=== PATIENT | male | born 1950 | race Caucasian/White ===

== ENCOUNTER → 2021-03-08 08:49 | Outpatient (CLI) | payer MEDICARE, OTHER, SELFPAY ==
--- NOTE | 2021-03-08 08:57 | VDUE_ITS ---
Reason For Study: Renal Failure Right Arm Left Arm Rt Brachial A: 0.49cm x 0.43cm, 111 cm/s Lt Brachial A: 0.51cm x 0.48cm, 95 cm/s Rt Radial A: 0.22cm x 0.21cm, 120 cm/s. Lt Radial A: 0.24cm x 0.26cm, 118 cm/s. Right Cephalic Vein at the wrist measures Left Cephalic Vein at the wrist measures 0.19cm x 0.19 cm. 0.26cm x 0.29 cm. Right Cephalic Vein in the forearm measures Left Cephalic Vein in the forearm measures 0.20cm x 0.20 cm. 0.20cm x 0.22 cm. Right Cephalic Vein below antecub measures Left Cephalic Vein below antecub measures 0.25cm x 0.28 cm. 0.33cm x 0.39 cm. Right Cephalic Vein above antecub measures Left Cephalic Vein above antecub measures 0.43cm x 0.46 cm. 0.24cm x 0.23 cm. Right Cephalic Vein mid bicep measures Left Cephalic Vein at mid bicep measures 0.28cm x 0.31 cm. 0.19cm x 0.18 cm. Right Cephalic Vein at the shoulder measures Left Cephalic Vein at the shoulder measures 0.24cm x 0.30 cm. 0.20cm x 0.18 cm. Right Basilic Vein at the origin measures Basilic vein at origin measures 0.15cm x 0.38cm x 0.41 cm. 0.15 cm. Right Basilic Vein mid bicep measures 0.38cm Basilic vein at bicep measures 0.14cm x 0.11 x 0.41 cm. cm. Right Basilic Vein above antecub measures Basilic vein above antecub measures 0.15cm x 0.37cm x 0.37 cm. 0.14 cm. VL/Saphenous Vein Mapping, Bilat Interpretation Summary Patent and compressible bilateral upper extremity cephalic and basilic veins wi th dimensions as noted Normal bilateral radial and brachial diameter and flow Ordering Physician: Vargas Ann Referring Physician: [facility] Performed By: Kori Bennett RDCS, RVT ?
== END ==
PROVIDERS: Referring Provider Surgery; Visit Provider Surgery
DX: Z01.818 Encounter for other preprocedural examination (principal); N18.5 Chronic kidney disease, stage 5; N17.9 Acute kidney failure, unspecified
CPT/HCPCS: 93970; 93985

== ENCOUNTER 2021-04-27 08:41 | Day surgery (SDC) | payer MEDICARE, OTHER, SELFPAY ==
--- NOTE | 2021-04-21 15:14 | NURSING ---
for PAT phone interview, pt was not available as he was at dialysis; pt's [id number],Carmen, answered the phone. She did not know pt's health history or medications. Carmen agreeable to another phone call next week on Saturday04/24/21 when she will have the med list and health history. EKG appointment made according to Carmen's availability to transport pt.
--- NOTE | 2021-04-25 09:42 | EKG12_ITS ---
Test Reason : PREOP Blood Pressure : / mmHG Vent. Rate : 058 BPM Atrial Rate : 058 BPM P-R Int : 154 ms QRS Dur : 078 ms QT Int : 456 ms P-R-T Axes : 046 -07 -04 degrees QTc Int : 447 ms Sinus bradycardia Inferior infarct , age undetermined Abnormal ECG Confirmed by TU SANTANA, JAMIE ([id number]), commercial production editor BRICE SIDDIQUI ([id number]) on 04/25/2021 1:49:06 PM Referred By: Vargas Ann Confirmed By:JAMIE MAE MD
[2021-04-25 10:37] LABS: Hematocrit 35.6 % (40-54); Hemoglobin 11.6 g/dL (13.0-16.5); Mean Corp Hgb Conc 32.6 g/dL (32-36); Mean Corpuscular Hgb 32.1 pg (27.0-32.0); Mean Corpuscular Volume 98.6 fL (80-94); Platelet Count 143 K/mm3 (150-450); RBC Distribution Width CV 12.8 % (11.6-14.6); RBC Distribution Width SD 46.5 fl (35.1-43.9); Red Blood Count 3.61 M/mm3 (4.6-6.2)
[2021-04-25 11:02] LABS: Anion Gap 7 (5-15); BUN 29 mg/dL (7-18); BUN/Creat Ratio 7.5 RATIO (10-20); Calcium,Total 8.8 mg/dL (8.5-10.1); Chloride 101 mmol/L (98-107); Creatinine, Serum 3.88 mg/dL (0.70-1.30); EST Glomerular Filtration Rate 16 mL/min (>60); Est Glom Filt Rate - Afr Amer 20 mL/min (>60); Glucose 140 mg/dL (74-106); Sodium Level 141 mmol/L (136-145)
[2021-04-27] VITALS (9 sets, daily range): BP systolic 79–166; BP diastolic 40–80; PULSE 55–68; RESP 14–18; TEMP 35.9–37; O2SAT 96–100; BMI 29.1
[2021-04-27 09:26] LABS: Bedside Glucose 90 mg/dL (70-110)
--- NOTE | 2021-04-27 09:35 | PCM.HP.BLA ---
History and Physical Date of Admission: 04/27/21 Intake Visit Reasons: VM 03/08, FISTULA PLACEMENT Chief Complaint: fistula placement Manager Reliability Required: No Is patient in pain?: No Allergies No Known Allergies Allergy (Verified 04/12/21 15:03) Medications Unobtainable 04/12/21 [History Confirmed 04/12/21] [facility] Medical History (Updated 04/12/21 @ 14:57 by Brittney Saturday) Acute renal failure Diabetes Surgical History (Updated 04/12/21 @ 14:57 by Brittney Saturday) H/O carotid endarterectomy Family History (Updated 04/12/21 @ 14:58 by Brittney Saturday) Father Diabetes Hypertension Social History (Updated 04/12/21 @ 14:58 by Brittney Saturday) Smoking Status: Former smoker alcohol intake: never substance use type: does not use HPI HPI HPI: PAIGE MCWILLIAMS, is a 70 M who presents to the office today for surgical consultation regarding a fistula creation. The patient is referred by the [place], [place] dialysis [facility] sa[facility], Juliet Seth RN and Dr.Ravindra Kwong and a written copy of my surgical consult and recommendations will return to them. As of 01/25/2021 the patient's BUN was 57 and creatinine 5.21. The patient is on hemodialysis via right internal jugular tunneled dialysis catheter for at least a year and a half. Although previously recommended for referral the patient has declined for the past year and a half and having a fistula created. He is right arm dominant. He has had 2 Covid vaccinations but has not been booster. He presents with his daughter today. There is evidence of bilateral carotid endarterectomies. By the report of the daughter there apparently is recurrent stenosis of 1 carotid but the patient again is refusing intervention. 03/08/2021 Reason For Study: Renal Failure Right Arm Left Arm Rt Brachial A: 0.49cm x 0.43cm, 111 cm/s Lt Brachial A: 0.51cm x 0.48cm, 95 cm/s Rt Radial A: 0.22cm x 0.21cm, 120 cm/s. Lt Radial A: 0.24cm x 0.26cm, 118 cm/s. Right Cephalic Vein at the wrist measures Left Cephalic Vein at the wrist measures 0.19cm x 0.19 cm. 0.26cm x 0.29 cm. Right Cephalic Vein in the forearm measures Left Cephalic Vein in the forearm measures 0.20cm x 0.20 cm. 0.20cm x 0.22 cm. Right Cephalic Vein below antecub measures Left Cephalic Vein below antecub measures 0.25cm x 0.28 cm. 0.33cm x 0.39 cm. Right Cephalic Vein above antecub measures Left Cephalic Vein above antecub measures 0.43cm x 0.46 cm. 0.24cm x 0.23 cm. Right Cephalic Vein mid bicep measures Left Cephalic Vein at mid bicep measures 0.28cm x 0.31 cm. 0.19cm x 0.18 cm. Right Cephalic Vein at the shoulder measures Left Cephalic Vein at the shoulder measures 0.24cm x 0.30 cm. 0.20cm x 0.18 cm. Right Basilic Vein at the origin measures Basilic vein at origin measures 0.15cm x 0.38cm x 0.41 cm. 0.15 cm. Right Basilic Vein mid bicep measures 0.38cm Basilic vein at bicep measures 0.14cm x 0.11 x 0.41 cm. cm. Right Basilic Vein above antecub measures Basilic vein above antecub measures 0.15cm x 0.37cm x 0.37 cm. 0.14 cm. VL/Saphenous Vein Mapping, Bilat Interpretation Summary Patent and compressible bilateral upper extremity cephalic and basilic veins with dimensions as noted Normal bilateral radial and brachial diameter and flow Ordering Physician: Vargas Ann Referring Physician: [facility] Performed By: Kori Bennett, MALICK, RVT ? 03/08/21 1145Date Vargas Ann MD ROS General General: No weight change, appetite, fatigue, colon cancer, breast cancer or weakness HEENT HEENT: No difficulty swallowing, eye injury, eye surgery, swollen glands or hoarseness Endo Endocrine: Yes diabetes mellitus; No thyroid disease, thyroid cancer, Hair loss, heat intolerance or cold intolerance Skin Skin: No rash or changing moles Musc Musculoskeletal: No back problems, arthritis, rheumatoid arthritis, gout or joint pain Cardio Cardiovascular: Yes high blood pressure and heart attack; No murmur, pacemaker, heart disease, atrial fibrillation, heart stent, palpitations, shortness of breat with exertion or chest pain Psych Psychiatric: No depression, anxiety or hearing voices Resp Respiratory: Yes shortness of breath, No sleep apnea, No cough, Yes COPD, No asthma, No emphysema and No wheezing Gastro Gastrointestinal: No abdominal pain, No nausea or vomiting, No diarrhea, No constipation, No blood in stool, No acid reflux, No hemorrhoids, No ulcers, No gallbladder problem and No black,tarry stools Aly Hematologic: Yes blood thinners, No blood disorders, No bleeding, No anemia and No blood clots Neuro Neurologic: No system reviewed and no additional complaints, except as documented, No as per HPI, No abnormal gait, No abnormal hearing, No abnormal movements, No abnormal speech, No behavioral changes, No burning sensations, No confusion, No convulsions, No disequilibrium, No dizziness, No localized weakness, No frequent falls, No headache(s), No lack of coordination, No loss of vision, No memory loss, No numbness, No other visual disturbances, No radicular pain, No restless legs, No sensory deficit, No syncope, No tingling, No tremor(s), No weakness and No other Exam Const General: cooperative, comfortable and no acute distress Nutritional Appearance: average body habitus Orientation: alert and awake [facility] Head: normal to inspection Eyes General: appearance normal, both eyes and all related structures Neck Other: Well-healed bilateral carotid incisions, 2+ bilateral carotid pulses, 2/6 bruit on the left, high-pitched staccato 2/6 bruit on the right Chest Chest palpation & inspection: normal inspection of the chest Resp Effort & Inspection: normal respiratory effort Auscultation: clear to auscultation bilaterally Cardio Rate: regular rate Rhythm: regular rhythm GI Palpation: soft and no hepatosplenomegaly Auscultation: normal bowel sounds Musc Cervical Spine: normal cervical lordosis Skin General: no rashes or lesions noted Neuro General: patient alert and patient awake Extrem Other: 3+ left radial pulse. 3+ left brachial pulse. Ultrasound inspection reveals a borderline cephalic vein of the wrist and forearm and of adequate depth. It is patent and compressible. Psych Appearance: grossly normal Assessment and Plan Assessment and Plan (1) Chronic renal insufficiency, stage V: Status: Chronic Plan - Dr. Vargas Ann MD: 70-year-old gentleman with stage V chronic renal failure. I recommend to him a left forearm radiocephalic arteriovenous hemodialysis fistula. With the daughter present I described the technique, benefit, risk of alternatives. No guarantees of success have been offered. The patient has had a very long-term right IJ tunneled dialysis catheter in place. By daughter report the patient does not do well with anesthesia apparently is very confused and combative for multiple days postoperatively. He will be referred for preadmission testing analysis per anesthesia. He has had an opportunity to ask and have questions answered. We will schedule procedure at his discretion. I appreciate the opportunity of assisting with the surgical care Copy: and the [facility] system Vargas Ann M.D., F.A.C.S. I have re-examined the patient. There are no clinical changes since date of exam.
--- NOTE | 2021-04-27 09:35 | EX.PCM.DISCH ---
Discharge Instructions Procedure Fistula Diet Discharge Diet: Renal Diet Activity Discharge Activity: May Not Drive (for 2-3 days or while taking narcotic pain medications.), May Shower and May Take a Tub Bath (in 5 days.) Lifting Restrictions: 5 pounds Keep extremity elevated above heart level: - (Keep arm elevated above the heart level for 3 days.) Dressing / Incision Call your doctor if your incision/area has: Continuous Slow Oozing, Sudden Increased Bleeding (apply pressure and call your doctor.), Increased Pain/ Swelling, Increased Redness and Foul Smelling Discharge Call your doctor if you observe: Fever of 101 or Higher Suture Line Care: Avoid Pulling/Pushing and Avoid Pinching/Bending Cleanse incision/area with: Keep Dressing Clean & Dry Additional Dressing/Incision Instructions:: Change or remove dressing in one day. May protect with a gauze bandaid. Follow Up Care Please Follow Up With: Vargas Ann MD When: Call [phone] to make an appointment for suture removal and follow up in 1 week. Test Results: Test results from this visit will be discussed in further detail at your follow-up appointment, if applicable. Discharge Plan Admission Attending Provider: Vargas Ann Primary Care Provider: Hospital,ID Discharge Orders/Prescriptions Prescriptions: No Action atorvastatin 40 mg Tablet 40 mg PO DAILY RF: 0 carvedilol 12.5 mg Tablet 12.5 mg PO BID RF: 0 magnesium oxide 420 mg Tablet 420 mg PO DAILY RF: 0 amlodipine 5 mg Tablet 5 mg PO QHS RF: 0 levothyroxine 100 mcg Tablet 100 mcg PO DAILY RF: 0 isosorbide mononitrate 60 mg Tablet Extended Release 24 Hr 90 mg PO DAILY RF: 0 warfarin 6 mg Tablet 6 mg PO DAILY RF: 0 tamsulosin 0.4 mg Capsule 0.4 mg PO DAILY RF: 0 furosemide 80 mg Tablet 40 mg PO TUTHSA RF: 0 hydralazine 50 mg Tablet 50 mg PO TID RF: 0 cholecalciferol (vitamin D3) 25 mcg (1,000 unit) Tablet 75 mcg PO DAILY RF: 0 aspirin 81 mg Capsule 81 mg PO DAILY RF: 0
[2021-04-27 10:11] LABS: INR Fingerstick 1.7; Prothrombin Time Fingerstick 20.4 SEC (11.9-14.4)
[2021-04-27] MEDS: Bupivacaine Mpf 0.5% 30 ML VIAL (11:00)
[2021-04-27] MEDS: Lidocaine 1% (30 ml sdv) 30 ML Vial (11:00)
--- NOTE | 2021-04-27 11:47 | SUR.PREOP ---
on 04/24/21 in PAT interview with pt's dgtr-in-law Carmen, Carmen was instructed to clarify with Dr Ann's office if/when to stop Coumadin.
[2021-04-27] MEDS: Heparin Injection (Vial) 5,000 UNIT/ML VIAL 5000 UNIT (12:00)
--- NOTE | 2021-04-27 12:09 | OP.PCM_ITS ---
Problems Associated Problem List Diagnoses (1) Chronic renal insufficiency, stage V: Report of Operation Date of Procedure: 04/27/21 Pre-Operative Diagnosis: Stage V chronic renal insufficiency Post-Operative Diagnosis: Same Surgery/Procedure Performed:: Left upper extremity radial cephalic arteriovenous hemodialysis fistula creation Description of Surgical Findings:: Timeout informed consent was obtained. 70-year-old gentleman was taken to the operating placed on the table and underwent monitored anesthesia care. The left upper extremity sterilely prepped and draped. 1% lidocaine mixed 50-50 with 0.5% Marcaine was used as local anesthetic. Throughout the procedure a total of 9 cc was used. Ultrasound mapping was performed. Local was instilled an oblique incision was made in the radial aspect of the left forearm. Sharp blunt dissection was used to dissect free the cephalic vein distally and then more proximally. Side branches were secured with hemoclips. Then sharp and blunt dissection was used to mobilize and elevate the radial artery. The vein was ligated distally with hemoclips and was spatulated. Patient received 6000 units of heparin. After adequate c irculating time peripheral vascular clamps were placed on the radial artery and 11 blade was used to make an arteriotomy which was extended with Corado scissors. A end-to-side venous to arterial anastomosis created with a running 7-0 Prolene. There was good flow upon completion. It was a good palpable thrill. The hand remained viable. The patient received 20 mg of protamine as reversal. A piece of Surgicel was additionally added to assist with hemostasis. The wound was closed with a deep layer of interrupted 3-0 Vicryl and the skin was approximated the running septic or 4-0 Monocryl. Steri-Strips Telfa tape dressing applied. Sponge and instrument and needle counts were reported to the surgeon to be correct. Specimens none. Drains none. Blood loss minimal. The patient was taken to the recovery area in satisfactory condition without apparent complication Vargas Ann M.D., F.A.C.S. Surgeon: Vargas Ann Anesthesiologist: Torres Torres
== END 2021-04-27 23:59 | disposition home or self-care (01) ==
LOC: SDC 08:41 → AC 08:42
PROVIDERS: Referring Provider Surgery; Visit Provider Surgery
PROC: (CPT 1844; principal; 2021-04-27 10:35)
DX: E11.22 Type 2 diabetes mellitus with diabetic chronic kidney disease (principal); J44.9 Chronic obstructive pulmonary disease, unspecified; N18.5 Chronic kidney disease, stage 5; I12.0 Hypertensive chronic kidney disease with stage 5 chronic kidney disease or end stage renal disease; Z87.891 Personal history of nicotine dependence; D64.9 Anemia, unspecified; F32.A Depression, unspecified; K21.9 Gastro-esophageal reflux disease without esophagitis; E78.00 Pure hypercholesterolemia, unspecified; I25.2 Old myocardial infarction; Z79.82 Long term (current) use of aspirin; Z79.899 Other long term (current) drug therapy; E07.9 Disorder of thyroid, unspecified
CPT/HCPCS: 01844; 36415; 36416; 80048; 82962; 85027; 85610; 93005; J7040; J7120

== ENCOUNTER 2021-06-20 09:55 | Day surgery (SDC) | payer MEDICARE, OTHER, SELFPAY ==
[2021-06-19 07:49] VITALS: BMI 29.2
[2021-06-20 10:18] LABS: Hematocrit 35.3 % (40-54); Hemoglobin 11.9 g/dL (13.0-16.5); Mean Corp Hgb Conc 33.7 g/dL (32-36); Mean Corpuscular Hgb 32.2 pg (27.0-32.0); Mean Corpuscular Volume 95.7 fL (80-94); Mean Platelet Vol. 9.9 fl (6.2-12.0); Platelet Count 190 K/mm3 (150-450); RBC Distribution Width CV 13.8 % (11.6-14.6); RBC Distribution Width SD 48.4 fl (35.1-43.9); Red Blood Count 3.69 M/mm3 (4.6-6.2); White Blood Count 5.4 K/mm3 (4.4-11.0)
--- NOTE | 2021-06-20 10:29 | HP.PCM_ITS ---
History and Physical Date of Admission: 06/20/21 Intake Visit Reasons: F/U FISTULA Chief Complaint: fistula placement Allergies No Known Allergies Allergy (Verified 05/25/21 10:08) [facility] Medical History (Updated 06/15/21 @ 10:00 by Esmer LOCO, PASenthilC) Acute renal failure Ambulates with cane Anemia Cardiology follow-up encounter COPD (chronic obstructive pulmonary disease) Depression Diabetes Dietary restriction Easy bruising End stage chronic kidney disease Excessive bleeding Former smoker Gastric reflux Hepatitis High cholesterol History of atrial fibrillation History of CHF (congestive heart failure) History of heart attack History of renal dialysis Hypertension Problem with dialysis access Shortness of breath on exertion Thyroid disease Wears glasses Surgical History (Updated 05/25/21 @ 10:09 by Brittney Faustin) H/O carotid endarterectomy S/P arteriovenous (AV) fistula creation Family History Father Diabetes Hypertension Social History Smoking Status: Former smoker alcohol intake: never substance use type: does not use HPI HPI HPI: PAIGE MCWILLIAMS, is a 71 M who presents to the office today for follow-up of his fistula. Dr. Ann performed a left upper extremity radial cephalic arteriovenous hemodialysis fistula creation on 04/27/21. Patient tolerated the procedure well. He denies incisional pain. He denies numbness/tingling of the hand or fingers. He is currently on dialysis via tunneled dialysis catheters. Patient presents with his [id number]-[id number]. ROS General General: No weight change, appetite, fatigue, colon cancer, breast cancer or weakness HEENT HEENT: No difficulty swallowing, eye injury, eye surgery, swollen glands or hoarseness Endo Endocrine: Yes diabetes mellitus; No thyroid disease, thyroid cancer, Hair loss, heat intolerance or cold intolerance Skin Skin: No rash or changing moles Musc Musculoskeletal: No back problems, arthritis, rheumatoid arthritis, gout or joint pain Cardio Cardiovascular: Yes high blood pressure and heart attack; No murmur, pacemaker, heart disease, atrial fibrillation, heart stent, palpitations, shortness of breat with exertion or chest pain Psych Psychiatric: No depression, anxiety or hearing voices Resp Respiratory: Yes shortness of breath, No sleep apnea, No cough, Yes COPD, No asthma, No emphysema and No wheezing Gastro Gastrointestinal: No abdominal pain, No nausea or vomiting, No diarrhea, No constipation, No blood in stool, No acid reflux, No hemorrhoids, No ulcers, No gallbladder problem and No black,tarry stools Aly Hematologic: Yes blood thinners, No blood disorders, No bleeding, No anemia and No blood clots Neuro Neurologic: No system reviewed and no additional complaints, except as documented, No as per HPI, No abnormal gait, No abnormal hearing, No abnormal movements, No abnormal speech, No behavioral changes, No burning sensations, No confusion, No convulsions, No disequilibrium, No dizziness, No localized weakness, No frequent falls, No headache(s), No lack of coordination, No loss of vision, No memory loss, No numbness, No other visual disturbances, No radicular pain, No restless legs, No sensory deficit, No syncope, No tingling, No tremor(s), No weakness and No other Exam Const General: cooperative, healthy appearing, comfortable and no acute distress HENMT Head: normal to inspection Eyes General: appearance normal, both eyes and all related structures Neck Neck: normal visual inspection Neck mass: No Resp Effort & Inspection: normal respiratory effort Auscultation: clear to auscultation bilaterally Cardio Rate: regular rate Rhythm: regular rhythm GI Inspection: normal to inspection Palpation: soft Auscultation: normal bowel sounds Skin General: no rashes or lesions noted Neuro General: no focal motor deficits and CN's II-XI intact bilaterally Extrem General: normal to inspection Other: Left forearm radiocephalic AV fistula- good pulse, diminished bruit and thrill mid forearm. Whistling auscultation noted. Psych Appearance: grossly normal Affect: normal affect COVID (Procedure Consent) Procedure Criteria Procedure Criteria: Yes Elective The surgeon/proceduralist and patient have discussed in detail the risk of exposure to and/or potential harm posed by the COVID-19 virus with having a surgery/procedure at this time versus the risk of delaying the surgery/procedure. It is not possible to know either the risk of delaying the surgery or procedure or chance of getting an infection with perfect accuracy, but a joint decision was made between the patient and the surgeon/proceduralist to proceed at this time with the scheduled surgery/procedure as indicated on the consent form. Assessment and Plan Assessment and Plan (1) End stage chronic kidney disease: Status: Chronic Plan: Currently dialyzing via chest catheters. Continue to utilize chest catheters for dialysis. Left forearm fistula not ready for use. (2) Problem with dialysis access: Status: Acute Qualifiers: Encounter type: initial encounter Qualified Code(s): T82.898A - Other specified complication of vascular prosthetic devices, implants and grafts, initial encounter Plan: Patient's fistula is not ready for use. I believe a fistulogram would assist with maturation. Dr. Ann will plan to perform a fistulogram with possible intervention. Procedure details, risks and benefits have been explained. Patient is to hold his Coumadin for 3 days. He may continue his aspirin for the pr ocedure. Patient and daughter in law have had the opportunity to ask and have questions answered. Patient verbally understands and agrees with the plan. I have re-examined the patient. There are no clinical changes since date of exam.
[2021-06-20 10:40] LABS: Anion Gap 5 (5-15); BUN 51 mg/dL (7-18); BUN/Creat Ratio 8.7 RATIO (10-20); Calcium,Total 8.9 mg/dL (8.5-10.1); Chloride 102 mmol/L (98-107); Creatinine, Serum 5.86 mg/dL (0.70-1.30); EST Glomerular Filtration Rate 10 mL/min (>60); Est Glom Filt Rate - Afr Amer 12 mL/min (>60); Estimated Creatinine Clearance 9.54 ml/min; Glucose 110 mg/dL (74-106); Potassium 4.8 mmol/L (3.5-5.1); Sodium Level 138 mmol/L (136-145)
[2021-06-20 10:51] LABS: Bedside Glucose 112 mg/dL (74-106)
[2021-06-20 10:51] LABS: INR Fingerstick 1.2
--- NOTE | 2021-06-20 12:11 | OP.PCM_ITS ---
Problems Associated Problem List Diagnoses (1) Problem with dialysis access: Report of Operation Date of Procedure: 06/20/21 Pre-Operative Diagnosis: Failure to mature left forearm radiocephalic arteriovenous hemodialysis fistula Post-Operative Diagnosis: Proximal fistula venous stenosis and arterial anastomotic stenosis Surgery/Procedure Performed:: Left upper extremity fistulogram with 6 x 80 mm EverCross angioplasty Description of Surgical Findings:: Timeout informed consent was obtained. The patient had relatively low blood pressure. He was given a total of 300 cc of crystalloid to help support him. No IV sedation was performed. It was felt pertinent to proceed with maturation of this fistula to allow for removal of tunneled dialysis catheters. The left upper extremity was sterilely prepped and draped. Under ultrasound guidance 2% lidocaine was instilled as local anesthetic. Took me several attempts closer to the antecubital space to gain retrograde access to the cephalic vein. Was able to get a micropuncture needle micropuncture wire then a 6 Taiwanese short sheath dilator. Using a 035 angled Glidewire and a 4 Taiwanese angled glide cath and gained access to the radial artery proximal to the anastomosis. Using Isovue contrast fistulogram was obtained demonstrating some moderate arterial anastomotic stenosis and focal area of 80% stenosis in the proximal fistula at about 3 cm. Patient received 3000 units heparin intravenously. Then at the anastomosis placed the 6 x 80 mm EverCross balloon perform balloon angioplasty just of the anastomosis and then t he proximal portion of the fistula. That was held for 2 minutes. I move the balloon to perform a balloon maturation angioplasty of the remainder of the forearm fistula that I could get to through my sheath site. That also was held for 2 minutes to a total atmospheric pressure of 14. He tolerated the procedure well. Exchanged the balloon out over the Glidewire for the 4 Taiwanese glide cath and obtained a completion fistulogram demonstrated now significantly improved diameter and flow through the radiocephalic AV fistula. I completed the fistulogram through the sheath to get the upper extremity. No apparent complications sheath was removed. U suture of 4-0 nylon was placed and a additional simple suture of 4-0 nylon. Hemostasis was intact there was a good pulse thrill and bruit in the fistula at the completion Images demonstrate a left forearm radiocephalic arteriovenous hemodialysis fistula. There are several side branches. There is an area of at least 70% stenosis at about 3 cm from the anastomosis and there was about moderate stenosis at the anastomosis. There appeared to be good upper arm outflow and adequate central venous outflow. Subsequent to the balloon angioplasty there appeared to be resolution of all areas of stenosis at the anastomosis and proximal portion of the fistula with additional nice balloon maturation of the vein. Vargas Ann M.D., F.A.C.S. Surgeon: Vargas Ann
== END 2021-06-20 23:59 | disposition home or self-care (01) ==
LOC: CLSP 09:57
PROVIDERS: Visit Provider Surgery
DX: T85.858A Stenosis due to other internal prosthetic devices, implants and grafts, initial encounter (principal); I13.2 Hypertensive heart and chronic kidney disease with heart failure and with stage 5 chronic kidney disease, or end stage renal disease; E11.51 Type 2 diabetes mellitus with diabetic peripheral angiopathy without gangrene; Z99.2 Dependence on renal dialysis; J44.9 Chronic obstructive pulmonary disease, unspecified; I50.9 Heart failure, unspecified; E11.22 Type 2 diabetes mellitus with diabetic chronic kidney disease; N18.6 End stage renal disease; E78.00 Pure hypercholesterolemia, unspecified; I95.9 Hypotension, unspecified; D63.1 Anemia in chronic kidney disease; I25.2 Old myocardial infarction; E07.9 Disorder of thyroid, unspecified; Z79.01 Long term (current) use of anticoagulants; Z79.82 Long term (current) use of aspirin; Z79.899 Other long term (current) drug therapy; Z87.891 Personal history of nicotine dependence
CPT/HCPCS: 36415; 36416; 36902; 76937; 80048; 82962; 85027; 85610; J7040; Q9967; C1725; C1769

== ENCOUNTER 2021-10-26 11:14 | Day surgery (SDC) | payer MEDICARE, OTHER, SELFPAY ==
[2021-10-25 15:14] VITALS: BMI 29.2
[2021-10-26 11:25] LABS: INR Fingerstick 1.7; Prothrombin Time Fingerstick 20.2 SEC (11.7-14.9)
--- NOTE | 2021-10-26 12:56 | HP.PCM_ITS ---
History and Physical Date of Admission: 10/26/21 Chief Complaint: fistula check Back End Developer Required: No Is patient in pain?: No Allergies No Known Allergies Allergy (Verified 10/25/21 14:17) Medications amlodipine 5 mg tablet 5 mg PO QHS 04/24/21 [History Confirmed 10/25/21] aspirin 81 mg capsule 81 mg PO DAILY 04/24/21 [History Confirmed 10/25/21] atorvastatin 40 mg tablet 40 mg PO DAILY 04/24/21 [History Confirmed 10/25/21] carvedilol 12.5 mg tablet 12.5 mg PO BID 04/24/21 [History Confirmed 10/25/21] cholecalciferol (vitamin D3) 25 mcg (1,000 unit) tablet 75 mcg PO DAILY 04/24/21 [History Confirmed 10/25/21] furosemide 80 mg tablet 40 mg PO TUTHSA 04/24/21 [History Confirmed 10/25/21] isosorbide mononitrate 60 mg tablet,extended release 24 hr 90 mg PO DAILY 04/24/21 [History Confirmed 10/25/21] magnesium oxide 420 mg tablet 420 mg PO DAILY 04/24/21 [History Confirmed 0 10/25/21] tamsulosin 0.4 mg capsule 0.4 mg PO DAILY 04/24/21 [History Confirmed 10/25/21] hydralazine 50 mg tablet 100 mg PO TID 10/25/21 [History Confirmed 10/25/21] levothyroxine 100 mcg tablet 125 mcg PO DAILY 10/25/21 [History Confirmed 10/25/21] warfarin 6 mg tablet 2 mg PO DAILY 10/25/21 [History Confirmed 10/25/21] PFSH Medical History? Acute renal failure Ambulates with cane Anemia Cardiology follow-up encounter COPD (chronic obstructive pulmonary disease) Depression Diabetes Dietary restriction Easy bruising End stage chronic kidney disease Excessive bleeding Former smoker Gastric reflux Hepatitis High cholesterol History of atrial fibrillation History of CHF (congestive heart failure) History of heart attack History of renal dialysis Hypertension Problem with dialysis access Shortness of breath on exertion Thyroid disease Wears glasses Surgical History? H/O carotid endarterectomy S/P arteriovenous (AV) fistula creation (~04/2021) Family History? Father Diabetes Hypertension Social History? Smoking Status:? Former smoker alcohol intake:? never substance use type:? does not use HPI HPI HPI: PAGIE MCWILLIAMS, is a 71 M who presents to the office today for ROS General General: No weight change, appetite, fatigue, colon cancer, breast cancer or weakness HEENT HEENT: No difficulty swallowing, eye injury, eye surgery, swollen glands or hoarseness Endo Endocrine: Yes diabetes mellitus; No thyroid disease, thyroid cancer, Hair loss, heat intolerance or cold intolerance Skin Skin: No rash or changing moles Musc Musculoskeletal: No back problems, arthritis, rheumatoid arthritis, gout or joint pain Cardio Cardiovascular: Yes high blood pressure and heart attack; No murmur, pacemaker, heart disease, atrial fibrillation, heart stent, palpitations, shortness of breat with exertion or chest pain Psych Psychiatric: No depression, anxiety or hearing voices Resp Respiratory: Yes shortness of breath, No sleep apnea, No cough, Yes COPD, No asthma, No emphysema and No wheezing Gastro Gastrointestinal: No abdominal pain, No nausea or vomiting, No diarrhea, No constipation, No blood in stool, No acid reflux, No hemorrhoids, No ulcers, No gallbladder problem and No black,tarry stools Aly Hematologic: Yes blood thinners, No blood disorders, No bleeding, No anemia and No blood clots Neuro Neurologic: No system reviewed and no additional complaints, except as documented, No as per HPI, No abnormal gait, No abnormal hearing, No abnormal movements, No abnormal speech, No behavioral changes, No burning sensations, No confusion, No convulsions, No disequilibrium, No dizziness, No localized weakness, No frequent falls, No headache(s), No lack of coordination, No loss of vision, No memory loss, No numbness, No other visual disturbances, No radicular pain, No restless legs, No sensory deficit, No syncope, No tingling, No tremor(s), No weakness and No other Coding Level of Care Code No Charge Visit Reasons:?FISTULA CLOTTING Chief Complaint: fistula check Allergies No Known Allergies Allergy (Verified 10/25/21 14:17) Medications amlodipine 5 mg tablet 5 mg PO QHS 04/24/21 [History Confirmed 10/25/21] aspirin 81 mg capsule 81 mg PO DAILY 04/24/21 [History Confirmed 10/25/21] atorvastatin 40 mg tablet 40 mg PO DAILY 04/24/21 [History Confirmed 10/25/21] carvedilol 12.5 mg tablet 12.5 mg PO BID 04/24/21 [History Confirmed 10/25/21] cholecalciferol (vitamin D3) 25 mcg (1,000 unit) tablet 75 mcg PO DAILY 04/24/21 [History Confirmed 10/25/21] furosemide 80 mg tablet 40 mg PO TUTHSA 04/24/21 [History Confirmed 10/25/21] isosorbide mononitrate 60 mg tablet,extended release 24 hr 90 mg PO DAILY 04/24/21 [History Confirmed 10/25/21] magnesium oxide 420 mg tablet 420 mg PO DAILY 04/24/21 [History Confirmed 10/25/21] tamsulosin 0.4 mg capsule 0.4 mg PO DAILY 04/24/21 [History Confirmed 10/25/21] hydralazine 50 mg tablet 100 mg PO TID 10/25/21 [History Confirmed 10/25/21] levothyroxine 100 mcg tablet 125 mcg PO DAILY 10/25/21 [History Confirmed 10/25/21] warfarin 6 mg tablet 2 mg PO DAILY 10/25/21 [History Confirmed 10/25/21] PFSH Medical History? Acute renal failure Ambulates with cane Anemia Cardiology follow-up encounter COPD (chronic obstructive pulmonary disease) Depression Diabetes Dietary restriction Easy bruising End stage chronic kidney disease Excessive bleeding Former smoker Gastric reflux Hepatitis High cholesterol History of atrial fibrillation History of CHF (congestive heart failure) History of heart attack History of renal dialysis Hypertension Problem with dialysis access Shortness of breath on exertion Thyroid disease Wears glasses Surgical History? H/O carotid endarterectomy S/P arteriovenous (AV) fistula creation (~04/2021) Family History? Father Diabetes Hypertension Social History? Smoking Status:? Former smoker alcohol intake:? never substance use type:? does not use HPI HPI Surgical H&P: Yes HPI: PAIGE MCWILLIAMS, is a 71 M who presents to the office today for unable to dialyze via left forearm AV fistula. Patient has dementia and is unable to fully explain the reason the dialysis center is having difficulties. Our office was contacted by [facility] noting patient was unable to dialyze today via left forearm fistula. He had his dialysis catheters removed at some point since June. Patient stated he was unable to dialyze on Saturday however his daughter in law, who was in the lobby, noted that the patient did in fact dialyze on Saturday. Patient noted that on Saturday the fistula was infiltrated. He noted today clots came from the access sites. Patient's last fistulogram was on June 20, [address] Ann. A left upper extremity fistulogram with 6 x 80 mm Evercross angioplasty was performed. 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 He is currently maintained on Coumadin. Exam Const General: cooperative, healthy appearing, comfortable and no acute distress [facility] Head: normal to inspection Eyes General: appearance normal, both eyes and all related structures Neck Neck: normal visual inspection Neck mass: No Resp Effort & Inspection: normal respiratory effort Auscultation: clear to auscultation bilaterally Cardio Rate: regular rate Rhythm: regular rhythm GI Inspection: normal to inspection Palpation: soft Auscultation: normal bowel sounds Skin General: no rashes or lesions noted Neuro General: no focal motor deficits and CN's II-XI intact bilaterally Extrem General: normal to inspection Other: Left forearm AV fistula- good pulse, diminished bruit and thrill. Small hematoma and ecchymosis noted at the superior access point. Psych Appearance: grossly normal Affect: normal affect Assessment and Plan Assessment and Plan (1) Problem with dialysis access: ?Status:?Acute ?Qualifiers: ?Encounter type:?initial encounter? Qualified Code(s):?T82.898A - Other specified complication of vascular prosthetic devices, implants and grafts, initial encounter ?Plan: Dr. Ann has also evaluated this patient. Dr. Ann will plan to perform an urgent left forearm fistulogram. Procedure details, risks and benefits have been reviewed with the patient and the daughter in law. He is to hold his Coumadin today. [id number] was informed. Patient to obtain CBC and BMP today following the office visit. Patient's [id number] was not able to stay, so labs will need to be completed on arrival. Procedure has been scheduled for tomorrow. Patient and daughter in law have had the opportunity to ask and have questions answered. Patient verbally understands and agrees with the plan. ? ? ? Orders: Orders Basic Metabolic Profile (BMP) Today N18.6 - End stage renal disease, T82.898A - Other specified complication of vascular prosthetic devices, implants and grafts, initial encounter ? CBC W/Diff, Automated Today N17.9 - Acute kidney failure, unspecified ? Coding Level of Care Code Off vis,est,level 3 Diagnoses Problem with dialysis access? T82.898A ? ? ? Encounter type: initial encounter I have re-examined the patient. There are no clinical changes since date of exam. Vargas Ann M.D., F.A.C.S.
--- NOTE | 2021-10-26 14:04 | PCM.OPRPT ---
Report of Operation Date of Procedure: 10/26/21 Pre-Operative Diagnosis: Diminished flow left forearm radiocephalic arteriovenous hemodialysis fistula Post-Operative Diagnosis: High-grade multi segmental venous stenosis proximal 10 cm of his left forearm radiocephalic arteriovenous fistula Surgery/Procedure Performed:: Left upper extremity fistulogram with 7 x 80 mm EverCross angioplasty Description of Surgical Findings:: Timeout informed consent was obtained. 71-year-old gentleman was taken to the special procedures lab placed upon the table. The left upper semiwere sterilely prepped and draped. He received 50 mcg of fentanyl and 1 mg of Versed is intravenous sedation. Under ultrasound guidance 2% lidocaine was instilled closer to the antecubital space and then with a micropuncture needle retrograde access was gained to the fistula by Seldinger wire. The vein appeared to be relatively small and had diminished flow. 6 Jamaican short sheath dilator was inserted. Then an 035 angled Glidewire was used to place a 4 Jamaican glide cath into the radial artery proximal to the anastomosis. Using Isovue contrast fistulogram was obtained this demonstrated the first 8 to 10 cm of the fistula to be strictured in several different areas to a high degree. The patient received 5000 units of heparin. A 7 x 80 mm EverCross balloon was placed and just at the anastomosis the balloon was insufflated. Multiple areas of stenosis responded to the dilatation. The balloon was then gently withdrawn a little bit more distally which was actually proximal forearm. And repeat insufflation performed. Repeat images demonstrated now dramatic improvement in the caliber of the vein. There was evidence of some slight extravasation at the wrist and that was controlled with gentle pressure. The fistulogram was completed for the upper arm and extremity. He tolerated the procedure well the balloon was removed sheath was removed U suture of 4-0 nylon was placed hemostasis was intact. There was a palpable thrill. Images demonstrate a left forearm radiocephalic arteriovenous hemodialysis fistula with the artery anastomosis intact but the very first 8 to 10 cm the fistula demonstrating at least 4 different areas of high-grade stenosis which did respond to angioplasty. There is evidence of 2 large collateral vessels. This sheath itself seem to occupy the majority of the cephalic vein outflow in the proximal volar arm. The upper arm demonstrated good cephalic and basilic flow outflow and there was good central venous outflow. Subsequent to the angioplasty there appeared to be majority resolved stenosis of the proximal portion of the left forearm radiocephalic arteriovenous fistula Vargas Ann M.D., F.A.C.S. Surgeon: Vargas Ann Type of Anesthesia: IV Sedation and Local
== END 2021-10-26 15:00 | disposition home or self-care (01) ==
LOC: CLSP 11:14
PROVIDERS: Visit Provider Surgery
DX: T82.858A Stenosis of other vascular prosthetic devices, implants and grafts, initial encounter (principal); I13.2 Hypertensive heart and chronic kidney disease with heart failure and with stage 5 chronic kidney disease, or end stage renal disease; Z99.2 Dependence on renal dialysis; N17.9 Acute kidney failure, unspecified; F03.90 Unspecified dementia, unspecified severity, without behavioral disturbance, psychotic disturbance, mood disturbance, and anxiety; J44.9 Chronic obstructive pulmonary disease, unspecified; E11.22 Type 2 diabetes mellitus with diabetic chronic kidney disease; N18.6 End stage renal disease; I48.91 Unspecified atrial fibrillation; X58.XXXA Exposure to other specified factors, initial encounter; I25.2 Old myocardial infarction; D63.1 Anemia in chronic kidney disease; E07.9 Disorder of thyroid, unspecified; E78.00 Pure hypercholesterolemia, unspecified; Z79.01 Long term (current) use of anticoagulants; Z79.82 Long term (current) use of aspirin; Z79.899 Other long term (current) drug therapy; Z87.891 Personal history of nicotine dependence
CPT/HCPCS: 36416; 36902; 76937; 85610; 99152; 99153; Q9967; C1725; C1769